=== PATIENT | female | born 1955 | race Hispanic/Latino ===

== ENCOUNTER 2023-11-25 09:33 | Emergency (ER) | payer MEDICARE ==
[~2023-11-25] VITALS: Ht 160 cm; Wt 67.1 kg
[2023-11-25 10:17] LABS: BASOPHILS # (AUTO) 0.02 K/uL (0.00-0.20); BASOPHILS % (AUTO) 0.4 % (0.0-5.0); EOSINOPHILS # (AUTO) 0.04 K/uL (0.00-0.70); EOSINOPHILS % (AUTO) 0.7 % (0.0-8.0); HEMATOCRIT 41.8 % (36-48); IMMATURE GRANULOCYTE ABSOLUTE 0.03 K/uL (0-1); LYMPHOCYTES # (AUTO) 0.6 K/uL (1.0-4.8); LYMPHOCYTES % (AUTO) 10.1 % (21.0-51.0); MEAN CORPUSCULAR HEMOGLOBIN 27.2 pg (27.0-33.0); MEAN CORPUSCULAR VOLUME 82.3 fL (79-99); MONOCYTES # (AUTO) 0.5 K/uL (0.1-1.0); MONOCYTES % (AUTO) 9.2 % (3.0-13.0); NEUTROPHILS # (AUTO) 4.3 K/uL (1.8-7.7); PLATELET COUNT (AUTO) 218 K/uL (130-400); RED BLOOD CELL COUNT(AUTO) 5.08 MIL/uL (4.00-5.50); WHITE BLOOD COUNT (AUTO) 5.5 K/uL (4.8-10.8)
[2023-11-25 10:36] LABS: ALBUMIN 3.3 g/dL (3.5-5.0); BILIRUBIN,TOTAL 1.4 mg/dL (0.2-1.0); CREATININE 1.1 mg/dL (0.5-1.5); POTASSIUM 4.9 mmol/L (3.5-5.1); TOTAL PROTEIN, SERUM 7.7 g/dL (6.0-8.3)
[2023-11-25 10:39] VITALS: BP 140/80; PULSE 101; RESP 20; O2SAT 100
[2023-11-25 11:52] LABS: APPEARANCE,URINE CLEAR (CLEAR); BILIRUBIN,URINE NEGATIVE (NEGATIVE); COLOR,URINE YELLOW (YELLOW); GLUCOSE, URINE (UA) NEGATIVE (NEGATIVE); KETONES,URINE >=80 mg/dL (NEGATIVE); LEUKOCYTE ESTERASE ,URINE NEGATIVE Leu/uL (NEGATIVE); NITRATE,URINE NEGATIVE (NEGATIVE); PH,URINE 5.5 (5.0-8.0); PROTEIN,URINE 30 mg/dL (NEGATIVE); UROBILINOGEN,URINE 0.2 mg/dL (0.2-1.0)
[2023-11-25 11:55] LABS: ADD UA MICROSCOPIC YES
[2023-11-25 11:57] LABS: BACTERIA,URINE RARE /HPF (None Seen); MUCUS,URINE FEW LPF (None Seen); RBC,URINE 0-1 /HPF (0-1); SQUAMOUS EPITHELIAL CELL,UR RARE /HPF (0-2); WBC,URINE 0-1 /HPF (0-1)
[2023-11-25] MEDS ORDERED: LACTATED RINGERS 1000ML 1,000 ML IV ONE (13:30)
== END 2023-11-25 14:05 | disposition left against medical advice (07) ==
LOC: EDH 09:33
DX: R07.89 Other chest pain (principal); R06.02 Shortness of breath; R11.2 Nausea with vomiting, unspecified; I10 Essential (primary) hypertension; Z90.710 Acquired absence of both cervix and uterus
CPT/HCPCS: 36415; 71045; 80053; 81001; 84484; 85025; 93005

== ENCOUNTER 2024-07-12 20:47 | Emergency (ER) | payer MEDICARE ==
[~2024-07-12] VITALS: Ht 162.6 cm; Wt 54.0 kg
[2024-07-12] MEDS ORDERED: DIPH50 PO (21:15)
[2024-07-12] MEDS: dexaMETHasone SOD PHOSPHATE 4 MG/ML 1ML VIAL IM ONE (21:53)
[2024-07-12] MEDS: DiphenhydrAMINE HCL 25 MG CAPSULE PO ONE (21:53)
[2024-07-12 22:24] VITALS: BP 116/72; PULSE 78; RESP 18; O2SAT 98
== END 2024-07-12 22:28 | disposition home or self-care (01) ==
LOC: EDH 20:47
DX: L25.9 Unspecified contact dermatitis, unspecified cause (principal); L50.9 Urticaria, unspecified; I10 Essential (primary) hypertension; Z98.890 Other specified postprocedural states
CPT/HCPCS: 99283; 96372; J1100; Q0163

== ENCOUNTER 2024-09-07 12:08 | Emergency (ER) | payer MEDICARE ==
[~2024-09-07] VITALS: Ht 165.1 cm; Wt 56.2 kg
[~2024-09-07 12:08] MED LIST: DIPH50 PO
[2024-09-07 12:25] VITALS: BP 150/76; TEMP 98.1; O2SAT 98
[2024-09-07] MEDS: dexaMETHasone SOD PHOSPHATE 4 MG/ML 1ML VIAL IM ONE (12:44)
[2024-09-07] MEDS: ALBUTEROL 0.083% 2.5 MG/3 ML INH IH ONE (12:45)
[2024-09-07 12:47] VITALS: PULSE 118; RESP 24
[2024-09-07] MEDS ORDERED: ALBUHFA IH (12:49)
== END 2024-09-07 13:02 | disposition home or self-care (01) ==
LOC: EDH 12:08
DX: C56.9 Malignant neoplasm of unspecified ovary (principal); R06.00 Dyspnea, unspecified; C79.31 Secondary malignant neoplasm of brain; I10 Essential (primary) hypertension; Z85.89 Personal history of malignant neoplasm of other organs and systems; Z85.41 Personal history of malignant neoplasm of cervix uteri; Z85.3 Personal history of malignant neoplasm of breast; Z85.42 Personal history of malignant neoplasm of other parts of uterus; Z98.890 Other specified postprocedural states
CPT/HCPCS: 99284; 96372; 94640; J1100